=== PATIENT | male | born 1965 | race Two or more races ===

== ENCOUNTER 2025-04-09 21:26 | Emergency (ER) | payer OTHER ==
[~2025-04-09] VITALS: Ht 172.7 cm; Wt 72.6 kg
[2025-04-09 23:42] VITALS: BP 128/81; TEMP 98; O2SAT 97
== END 2025-04-09 23:44 | disposition home or self-care (01) ==
LOC: ER 21:27
DX: F10.129 Alcohol abuse with intoxication, unspecified (principal); Z59.00 Homelessness unspecified; Z79.899 Other long term (current) drug therapy; Y90.9 Presence of alcohol in blood, level not specified
CPT/HCPCS: 82962-TC; 98960